=== PATIENT | female | born 1995 | race Two or more races ===

== ENCOUNTER → 2021-07-12 12:53 | Outpatient (BNVA) | payer OTHER, SELFPAY | PROVIDERS: PCP Internal Medicine; Visit Provider Nurse Practitioner Family | DX: Z13.89 Encounter for screening for other disorder (principal) ==

== ENCOUNTER → 2021-08-18 12:49 | Outpatient (REF) | payer OTHER, SELFPAY | LOC: HO.SL 12:49 | PROVIDERS: PCP Internal Medicine; Visit Provider Nurse Practitioner Family | DX: Z13.89 Encounter for screening for other disorder (principal) ==

== ENCOUNTER → 2021-12-16 16:00 | Outpatient (REF) | payer OTHER, SELFPAY | LOC: HO.SL 16:00 | PROVIDERS: PCP Internal Medicine; Visit Provider Nurse Practitioner Family | DX: G47.19 Other hypersomnia (principal); G47.9 Sleep disorder, unspecified; R06.83 Snoring | CPT/HCPCS: 95806 ==

== ENCOUNTER → 2022-03-29 14:29 | Outpatient (BNVA) | payer OTHER, SELFPAY | PROVIDERS: PCP Internal Medicine; Visit Provider Nurse Practitioner Family | DX: F09 Unspecified mental disorder due to known physiological condition (principal) ==

== ENCOUNTER → 2022-09-23 15:29 | Outpatient (BNVA) | payer OTHER, SELFPAY | PROVIDERS: PCP Internal Medicine; Visit Provider Nurse Practitioner Family ==

== ENCOUNTER 2023-01-25 08:10 | Outpatient (AMB) | payer OTHER, SELFPAY ==
--- NOTE | 2023-01-25 08:11 | A.OFFVIS_ITS ---
Intake Vital Signs 01/25/23 08:12 Height 5 ft 3 in Weight 185 lb BMI 32.8 BP 110/76 Blood Pressure Location Rt brachial Position Sitting Pulse 76 Pulse Source Pulse Oximeter Pulse Oximetry (%) 98 Oxygen Delivery Method Room Air Intake Visit Reasons: 4 mnts f/u appt-Confirmed Intake Note: Patient presents for 4 month follow up. patient states Im not having the severe migraines, Im just getting tension headaches now, but im not missing work. Allergies hong Allergy (Intermediate, Verified 01/25/23 08:14) Hives nectarine Allergy (Intermediate, Verified 01/25/23 08:14) Hives tree and shrub pollen Allergy (Intermediate, Verified 01/25/23 08:14) Hives 2-octyl cyanoacrylate [From SurgiSeal Teardrop Applicator] Allergy (Verified 01/25/23 08:14) Hives cat dander Allergy (Verified 01/25/23 08:14) Hives cats Allergy (Severe, Uncoded 01/25/23 08:14) Hives dog Allergy (Intermediate, Uncoded 01/25/23 08:14) Hives peach Allergy (Intermediate, Uncoded 01/25/23 08:14) Hives roaches Allergy (Uncoded 01/25/23 08:14) Hives Medication List - Last Reconciled 01/25/23 by LEAH Zaidi albuterol sulfate mg inhalation albuterol sulfate 90 mcg/actuation 1 inh inhalation QID cetirizine (All Day Allergy (cetirizine)) 10 mg PO DAILY PRN epinephrine 0.3 mg IM Q4H PRN fluticasone propion-salmeterol 500-50 mcg/dose (Wixela Inhub) 1 ea inhalation BID magnesium oxide 400 mg PO BEDTIME 30 days norethindrone (contraceptive) 0.35 mg PO DAILY omeprazole 20 mg PO DAILY riboflavin (vitamin B2) 400 mg PO DAILY 30 days rizatriptan 5 - 10 mg (0.5 - 1 x 10 mg) PO Q2H PRN 21 days topiramate 25 - 50 mg (1 - 2 x 25 mg) PO BEDTIME 30 days HPI HPI Comments History of Present Illness Details 28-yr-old female presents for f/u visit. Pt denies any significant interval medical changes. She is having less headcahe overall. No severe migraines. Not needing to miss work anymore. She may have a milder bilateral temporal or occipital tension type headache 2-3 x's per week. She is taking Topiramate 25mg qd- tolertaing well. She has not tried Rizatriptan yet. Pt is feeling better that she will be moving into a better apartment in near future. [facility] Surgical History No pertinent past surgical history Family History (Updated 01/25/23 @ 08:14 by WILLIAM Evans) Maternal Grandmother Liver cancer Other Colon cancer Diabetes Schizoaffective disorder Skin cancer Social History Alcohol intake: current Alcohol intake frequency: holidays/special occasions only Patient Tobacco Use Status: Former Tobacco user Substance Use Type: Marijuana Review of Systems Const All systems reviewed & are unremarkable except as noted in HPI and below Physical Exam Vital Signs: Last Vital Signs Pulse 76 01/25/23 08:12 BP 110/76 01/25/23 08:12 Pulse Ox 98 01/25/23 08:12 Oxygen Delivery Method Room Air 01/25/23 08:12 BMI result Body Mass Index 32.8 Const General: cooperative and no acute distress Orientation/consciousness: patient oriented x3 HEENT Head: Yes normocephalic Resp Effort & Inspection: normal respiratory effort and able to speak in complete sentences Neuro General: patient oriented x3, gait normal and CN's II-XI intact bilaterally Cognition (Neuro): normal cognition Motor exam (neuro): 5/5 motor strength present throughout Psych Appearance: grossly normal Mental Status: mental status grossly normal Speech and movement: Normal speech and movement present Affect: normal affect Attitude: cooperative Thought process: Normal thought process present Thought content: Normal thought content present Insight: Good insight present (Psych) Judgement: Good judgement present (Psych) Assessment & Plan Assessment & Plan (1) Migraine without aura: Code(s): G43.009 - Migraine without aura, not intractable, without status migrainosus (2) Sleep disorder, unspecified: Comment: snoring, fragmented sleep, excessive daytime sleepiness, ESS 12 Code(s): G47.9 - Sleep disorder, unspecified (3) Cognitive dysfunction: Comment: poor long-term and short-term memory, poor focus. ? undiagnosed ADD. ? multifactorial- sleep disorder, mood d/o. Code(s): F09 - Unspecified mental disorder due to known physiological condition Plan For acute migraine treatment: Trial Rizatriptan 10mg tab, 1/2 - 1 tab (5-10mg) at onset of TTH or migraine, may repeat in 2 hours. Max of 2 tabs (200mg) per 24 hours. May adjunct with OTC Tylenol 650mg q 4 hours, Ibuprofen (liquigel) 600mg q 6 hours, or Naproxen (liquigel) 440mg q 12 hrs prn. Previous migraine tx trials: sumatriptan- helpful but not tolerated. ? For migraine prevention treatment: Continue magnesium 400 mg q.h.s. Continue riboflavin 400 mg q.a.m. Increase Topiramate from 25mg to 50mg qhs. Contraindications: Beta-blockers d/t asthma dx. Amitriptyline until cleared/seen by psychiatry. ? For sleep: HST- no sleep apnea identified. Continue to try to optimize sleep hygiene- especially on nights she plays soccer. ? For cognitive and mood difficulties: Pt is on wait list for psychiatry and psychologist- pt would likely benefit from DBT. ? f/u in 6 months or sooner prn Medications: Changed From topiramate 25 - 50 mg (1 - 2 x 25 mg) PO BEDTIME 30 days 60 tabs 3RF To topiramate 50 mg (2 x 25 mg) PO BEDTIME 30 days 60 tabs 3RF Coding Level of Care Code Est Pt Level 4 (60681) Diagnoses Migraine without aura G43.009 Sleep disorder, unspecified G47.9 Cognitive dysfunction F09
[2023-01-25 08:12] VITALS: BP 110/76; PULSE 76; O2SAT 98; BMI 32.8
== END 2023-01-25 08:29 | disposition home or self-care (01) ==
PROVIDERS: PCP Internal Medicine; Visit Provider Nurse Practitioner Family
DX: G44.209 Tension-type headache, unspecified, not intractable (principal); R41.89 Other symptoms and signs involving cognitive functions and awareness; G47.9 Sleep disorder, unspecified
CPT/HCPCS: 99214

== ENCOUNTER → 2023-01-25 08:10 | Outpatient (BNVA) | payer OTHER, SELFPAY | PROVIDERS: PCP Internal Medicine; Visit Provider Nurse Practitioner Family ==

== ENCOUNTER 2023-07-25 08:07 | Outpatient (AMB) | payer OTHER, SELFPAY ==
--- NOTE | 2023-07-25 08:09 | A.OFFVIS_ITS ---
Vital Signs 07/25/23 08:15 Height 5 ft 3 in Weight 191 lb 2 oz BMI 33.9 BP 115/70 Blood Pressure Location Rt brachial Position Sitting Pulse 68 Pulse Source Pulse Oximeter Pulse Oximetry (%) 98 Oxygen Delivery Method Room Air Intake Visit Reasons: 6 mo f/u-Sleep disorder-CONF Intake Note: Patient presents for 6 months f/U. Allergies hong Allergy (Intermediate, Verified 07/25/23 08:14) Hives nectarine Allergy (Intermediate, Verified 07/25/23 08:14) Hives tree and shrub pollen Allergy (Intermediate, Verified 07/25/23 08:14) Hives 2-octyl cyanoacrylate [From SurgiSeal Teardrop Applicator] Allergy (Verified 07/25/23 08:14) Hives cat dander Allergy (Verified 07/25/23 08:14) Hives cats Allergy (Severe, Uncoded 01/25/23 08:14) Hives dog Allergy (Intermediate, Uncoded 01/25/23 08:14) Hives peach Allergy (Intermediate, Uncoded 01/25/23 08:14) Hives roaches Allergy (Uncoded 01/25/23 08:14) Hives HPI Comments Details: 28-yr-old female presents for f/u visit. Pt reports she is managing her mood better. Headaches are stable. She is having difficulty sleeping- sleeps 11pm until 2:30am and then cannot sleep. Notes that she spends a lot of time in bed. Does not use her phone or watch TV in bed. [facility] Surgical History No pertinent past surgical history Family History Maternal Grandmother Liver cancer Other Colon cancer Diabetes Schizoaffective disorder Skin cancer Social History Alcohol intake: current Alcohol intake frequency: holidays/special occasions only Patient Tobacco Use Status: Former Tobacco user Substance Use Type: Marijuana Physical Exam Vital Signs: Last Vital Signs Pulse 68 07/25/23 08:15 BP 115/70 07/25/23 08:15 Pulse Ox 98 07/25/23 08:15 Oxygen Delivery Method Room Air 07/25/23 08:15 BMI result Body Mass Index 33.9 Const General: cooperative and no acute distress Orientation/consciousness: patient oriented x3 Resp Effort & Inspection: normal respiratory effort and able to speak in complete sentences Neuro General: patient oriented x3 Cranial nerves: Yes CN's II-XII intact bilaterally Cognition (Neuro): normal cognition Psych Appearance: grossly normal Mental Status: mental status grossly normal Speech and movement: Normal speech and movement present Affect: normal affect Attitude: cooperative Assessment & Plan Assessment & Plan (1) Migraine without aura: Code(s): G43.009 - Migraine without aura, not intractable, without status migrainosus Category: Medical (2) Sleep disorder, unspecified: Comment: snoring, fragmented sleep, excessive daytime sleepiness, ESS 12 Code(s): G47.9 - Sleep disorder, unspecified Category: Medical (3) Cognitive dysfunction: Comment: poor long-term and short-term memory, poor focus. ? undiagnosed ADD. ? multifactorial- sleep disorder, mood d/o. Code(s): F09 - Unspecified mental disorder due to known physiological condition Category: Medical (4) Mood disorder: Code(s): F39 - Unspecified mood [affective] disorder Category: Medical Plan For acute migraine treatment: Rizatriptan 10mg tab, 1/2 - 1 tab (5-10mg) at onset of TTH or migraine, may repeat in 2 hours. Max of 2 tabs (200mg) per 24 hours. May adjunct with OTC Tylenol 650mg q 4 hours, Ibuprofen (liquigel) 600mg q 6 hours, or Naproxen (liquigel) 440mg q 12 hrs prn. Previous migraine tx trials: sumatriptan- helpful but not tolerated. ? For migraine prevention treatment: Continue magnesium 400 mg q.h.s. Continue riboflavin 400 mg q.a.m. Continue Topiramate 50mg qhs. Contraindications: Beta-blockers d/t asthma dx. Amitriptyline until cleared/seen by psychiatry. ? For sleep: HST- no sleep apnea identified. Discussed strategies to optimize sleep hygiene.r. ? For cognitive and mood difficulties: Monitor. ? f/u in 6 months or sooner prn Coding Level of Care Code Est Pt Level 4 (11194) Diagnoses Migraine without aura G43.009 Sleep disorder, unspecified G47.9 Cognitive dysfunction F09 Mood disorder F39
[2023-07-25 08:15] VITALS: BP 115/70; PULSE 68; O2SAT 98; BMI 33.9
== END 2023-07-25 08:45 | disposition home or self-care (01) ==
PROVIDERS: PCP Internal Medicine; Visit Provider Nurse Practitioner Family
DX: G43.009 Migraine without aura, not intractable, without status migrainosus (principal); G47.9 Sleep disorder, unspecified; R41.89 Other symptoms and signs involving cognitive functions and awareness; F39 Unspecified mood [affective] disorder
CPT/HCPCS: 99214

== ENCOUNTER → 2023-07-25 08:07 | Outpatient (BNVA) | payer OTHER, SELFPAY | PROVIDERS: PCP Internal Medicine; Visit Provider Nurse Practitioner Family ==

== ENCOUNTER 2024-12-19 14:28 | Outpatient (AMB) | payer MEDICAID, SELFPAY ==
--- NOTE | 2024-12-19 14:58 | MHC.OFFVIS ---
Vital Signs 12/19/24 15:10 BP 100/70 Blood Pressure Location Rt brachial Position Sitting Pulse 71 Pulse Source Pulse Oximeter Pulse Oximetry (%) 98 Oxygen Delivery Method Room Air Intake Visit Reasons: 6 month F/U Intake Note: Patient presents for 6 months f/U. Post Anesthesia Nurse Required: No Accompanied by: Self / Same As Patient Allergies hong Allergy (Intermediate, Verified 12/19/24 15:09) Hives nectarine Allergy (Intermediate, Verified 12/19/24 15:09) Hives tree and shrub pollen Allergy (Intermediate, Verified 12/19/24 15:09) Hives 2-octyl cyanoacrylate (From SurgiSeal Teardrop Applicator) Allergy (Verified 12/19/24 15:09) Hives cat dander Allergy (Verified 12/19/24 15:09) Hives cats Allergy (Severe, Uncoded 01/25/23 08:14) Hives dog Allergy (Intermediate, Uncoded 01/25/23 08:14) Hives peach Allergy (Intermediate, Uncoded 01/25/23 08:14) Hives roaches Allergy (Uncoded 01/25/23 08:14) Hives Medication List - Last Reconciled 12/19/24 by LEAH Zaidi albuterol sulfate mg inhalation albuterol sulfate 90 mcg/actuation 1 inh inhalation QID cetirizine (All Day Allergy (cetirizine)) 10 mg PO DAILY PRN epinephrine 0.3 mg IM Q4H PRN fluticasone propion-salmeterol 500-50 mcg/dose (Wixela Inhub) 1 ea inhalation BID magnesium oxide 400 mg PO BEDTIME 90 days norethindrone (contraceptive) 0.35 mg PO DAILY omeprazole 20 mg PO DAILY riboflavin (vitamin B2) 400 mg PO DAILY 90 days rizatriptan 5 - 10 mg (0.5 - 1 x 10 mg) PO Q2H PRN 21 days topiramate 25 - 50 mg (1 - 2 x 25 mg) PO BEDTIME 30 days HPI Comments Details: 29-yr-old female presents for f/u visit for migraine. She is 9 months , she had preeclampsia, no longer nursing. However, yesterday, she states she struck the top of her head on an exhaust fan, when she tried to hop up to sit on a counter. She reports she sustained a small scalp laceration, and felt general uneasiness, headache, scalp pain, retroorbital pain, dizziness. Deneis associated nausea, vomiting, LOC. The dizziness has resolved today. Prior to this accident, she was not having many migraines unless very stressed. Reports her mood is not as regular, can be short-tempered (not necessarily expressing it but just feeling it). She has an appointment in April w/ a new psychiatrist, but is looking for a new therapist. Her sleep is fragmented due to having a 9 month old who wakes up frequently. [facility] Surgical History No pertinent past surgical history Family History Maternal Grandmother Liver cancer Other Colon cancer Diabetes Schizoaffective disorder Skin cancer Social History Alcohol intake: current Alcohol intake frequency: holidays/special occasions only Patient Tobacco Use Status: Former Tobacco user Substance Use Type: Marijuana Physical Exam Vital Signs: Last Vital Signs Pulse 71 12/19/24 15:10 BP 100/70 12/19/24 15:10 Pulse Ox 98 12/19/24 15:10 Oxygen Delivery Method Room Air 12/19/24 15:10 Const General: cooperative and no acute distress Orientation/consciousness: patient oriented x3 Resp Effort & Inspection: normal respiratory effort and able to speak in complete sentences Neuro Other: Photophobic, more so on right eye Anterior crown of head-proximally 2.5 cm well-approximated laceration, without erythema, drainage, warmth. End gaze evoked nystagmus testing-well tolerated, did not evoked nystagmus Tandem and finger-nose test intact Significant swaying on Romberg General: patient oriented x3 Cranial nerves: Yes CN's II-XII intact bilaterally Cognition (Neuro): normal cognition Motor exam (neuro): 5/5 motor strength present throughout Psych Appearance: grossly normal Mental Status: mental status grossly normal Speech and movement: Normal speech and movement present Affect: normal affect Attitude: cooperative Assessment & Plan Assessment & Plan (1) Migraine without aura: Code(s): G43.009 - Migraine without aura, not intractable, without status migrainosus Category: Medical Qualifiers: Status migrainosus presence: without status migrainosus Intractability: not intractable Qualified Code(s): G43.009 - Migraine without aura, not intractable, without status migrainosus (2) Sleep disorder, unspecified: Comment: snoring, fragmented sleep, excessive daytime sleepiness, ESS 12 Code(s): G47.9 - Sleep disorder, unspecified Category: Medical (3) Cognitive dysfunction: Comment: poor long-term and short-term memory, poor focus. ? undiagnosed ADD. ? multifactorial- sleep disorder, mood d/o. Code(s): F09 - Unspecified mental disorder due to known physiological condition Category: Medical (4) Mood disorder: Code(s): F39 - Unspecified mood [affective] disorder Category: Medical Plan For 12/18/2024 concussion with mild head laceration: Pace activities, however avoid complete sensory deprivation May use her usual acute and preventative migraine medication regimen To the small well-approximated head laceration, may apply OTC bacitracin or Neosporin Patient to notify us with any worsening of symptoms, acute changes or red flag symptoms For acute migraine treatment: Resume Rizatriptan 10mg tab, 1/2 - 1 tab (5-10mg) at onset of TTH or migraine, may repeat in 2 hours. Max of 2 tabs (200mg) per 24 hours. May adjunct with OTC Tylenol 650mg q 4 hours, Ibuprofen (liquigel) 600mg q 6 hours, or Naproxen (liquigel) 440mg q 12 hrs prn. Previous migraine tx trials: sumatriptan- helpful but not tolerated. ? For migraine prevention treatment: Continue magnesium 400 mg q.h.s. Continue riboflavin 400 mg q.a.m. If headaches become more frequent, may raising Topiramate 25-50mg daily at bedtime Contraindications: Beta-blockers d/t asthma dx. Amitriptyline until cleared/seen by psychiatry. ? For sleep: Previous HST- no sleep apnea identified. ? For cognitive and mood difficulties: List of local psychology offices shared with patient ? f/u in 6 months or sooner prn Medications: Changed From topiramate 50 mg (2 x 25 mg) PO BEDTIME 30 days 60 tabs 3RF To topiramate 25 - 50 mg (1 - 2 x 25 mg) PO BEDTIME 60 tabs 3RF 30 days From magnesium oxide 400 mg PO BEDTIME 30 days 30 tabs 6RF To magnesium oxide 400 mg PO BEDTIME 90 tabs 3RF 90 days From rizatriptan max 2 tabs per day or 4 tabs per week 5 - 10 mg (0.5 - 1 x 10 mg) PO Q2H 21 days PRN 12 tabs 3RF migraine headache To rizatriptan max 3 tabs per day or 6 tabs per week 5 - 10 mg (0.5 - 1 x 10 mg) PO Q2H PRN 12 tabs 6RF migraine headache 21 days From riboflavin (vitamin B2) 400 mg PO DAILY 30 days 30 tabs 6RF To riboflavin (vitamin B2) 400 mg PO DAILY 90 tabs 3RF 90 days Coding Level of Care Code Est Pt Level 4 (87303) Diagnoses Migraine without aura and without status migrainosus, not intractable G43.009 Status migrainosus presence: without status migrainosus Intractability: not intractable Sleep disorder, unspecified G47.9 Cognitive dysfunction F09 Mood disorder F39
[2024-12-19 15:10] VITALS: BP 100/70; PULSE 71; O2SAT 98
--- OUTSIDE RECORDS SUMMARY | 2024-12-19 16:15 | XMS_ITS | Clinical Summary ---
Author Organization [address] Address [address] [place] [phone] Phone Care Team Providers Care Track Patrol Name Role Phone Kayy Finley MD Primary Care Provider [phone] Allergies Active Allergy Reactions Criticality Noted Date Comments Apple 02/18/2019 Pollen food syndrome-oral itching Damon Anaphylaxis High 10/15/2020 Fruit Extracts 02/18/2019 Nectarin-vomiting, abdominal pain, facial itching Other Cough,Wheezing,Runny nose Low 07/27/2018 [place] (Prunus Persica) 02/18/2019 Facial itching, abdominal pain, vomiting Medications cetirizine (ZyrTEC) 10 mg tablet Take 1 tablet (10 mg total) by mouth 1 (one) time each day. 2 Active EPINEPHrine (EpiPen 2-Foreign) 0.3 mg/0.3 mL injection Inject 0.3 mL (0.3 mg total) as directed if needed for anaphylaxis. 2 Active azelastine (ASTELIN) 137 mcg (0.1 %) nasal spray Administer 2 sprays into each nostril 2 (two) times a day. 3 Active norethindrone (DARA,RJ, LENA,MICRON OR) 0.35 mg tabletIndicati ons: control counseling Take 1 tablet (0.35 mg total) by mouth 1 (one) time each day. 28 tablet 11 5 026 Active fluticasone-sa lmeterol (ADVAIR DISKUS) 250-50 mcg/dose diskus inhaler Inhale 1 puff by mouth 2 (two) times a day. Rinse mouth with water after use to reduce aftertaste and incidence of candidiasis. Do not swallow. 1 each 5 5 026 Active albuterol HFA (ProAir HFA) 90 mcg/actuation inhaler Inhale 2 puffs by mouth every 4 (four) hours if needed for wheezing or shortness of breath. 8.5 g 5 5 026 Active albuterol 2.5 mg /3 mL (0.083 %) nebulizer solution Take 3 mL (2.5 mg total) by nebulization every 4 (four) hours if needed for wheezing or shortness of breath. 75 mL 2 5 Active sertraline (ZOLOFT) 25 mg tablet Take 1 tablet (25 mg total) by mouth 1 (one) time each day. 90 each 5 Active albuterol 2.5 mg /3 mL (0.083 %) nebulizer solution Inhale 3 mL (2.5 mg total) by mouth every 4 (four) hours if needed for wheezing or shortness of breath. 3 025 Discontin ued(Reord er) fluticasone-sa lmeterol (ADVAIR DISKUS) 250-50 mcg/dose diskus inhaler Inhale 1 puff by mouth 2 (two) times a day. Rinse mouth with water after use to reduce aftertaste and incidence of candidiasis. Do not swallow. 5 025 Discontin ued(Reord er) Active Problems Problem Noted Date Diagnosed Date Anxiety 12/12/2024 Assessment & Plan (12/12/2024 10:03 AM EDT): I have refilled her sertraline 25 mg daily. She will be meeting her new psychiatrist in April 2025. She is stable on this regimen. Headache 04/15/2024 Mild pre-eclampsia in third trimester 03/28/2024 Overview (03/28/2024): Diagnosed at 38w3d - IOL 03/28/24 High cholesterol 01/19/2024 Asthma 01/07/2024 Overview (01/07/2024): Wixela,Albuterol prn Dr. Raza Pulmonology Assessment & Plan (12/12/2024 10:03 AM EDT): Continue current regimen of fluticasone-salmeterol, albuterol. Assessment & Plan (06/11/2024 9:46 AM EDT): Stable with Wixela, albuterol. Heartburn 01/07/2024 IBS (irritable bowel syndrome) 01/07/2024 Abn chromsoml and genetic find on antenat screen of mother 09/26/2023 Overview (01/07/2024): SMA carrier. Partner needs to be offered testing. 09/27/23 partner testing order form/kit left in pt pickup.- pending ADD (attention deficit disorder) 09/12/2023 Marijuana use 09/12/2023 Overview (03/05/2024): 09/12/2023- UDS pos MJ Quit when +preg test Prediabetes 09/23/2022 Assessment & Plan (12/12/2024 10:03 AM EDT): We will monitor A1c. She will follow diabetic diet. Assessment & Plan (06/11/2024 9:46 AM EDT): Will monitor A1c levels. Orders: Hemoglobin A1c; Future Lipid panel with reflex to direct LDL; Future Thyroid stimulating hormone with reflex to free t4 and free t3; Future Migraine with aura 12/16/2021 Overview (01/07/2024): [facility]. 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 She is currently seeing Salima Hicks at [facility] biweekly Allergic conjunctivitis of both eyes 02/18/2019 Eczema 02/18/2019 Perennial allergic rhinitis 02/18/2019 Assessment & Plan (06/11/2024 9:46 AM EDT): Referral to attacher placed. Continue cetrizine and azelastine. Orders: Ambulatory referral to Allergy; Future Resolved Problems Problem Noted Date Diagnosed Date Resolved Date care, subsequent 02/09/2024 05/06/2024 Overview (03/18/2024): 1. [facility] site: [address] 2. Delivery site: [facility] 3. Mobile Mommas: 4. Dating criteria: LMP only 5. Blood type: O+ 6. Genetic screening: Date: Result: Panorama: High Risk due to low fraction (<1) - pt to be re-drawn 09/25 Horizon: pending Nuchal: normal AFP: Survey: 11/23/2023 at 8am 6. GBS: Date: 03/15 neg 7. FOB name: Yoav Castanon [phone] 8. Plans A. Epidural or other pain management - B. Labor support identified - C. Tdap - Date:, Flu - Date: D. Breast or Bottle feed: Breast, E. Baby's name -girl, Gabriela F. Circumcision - 9. Hospital Course: Obesity affecting in second trimester 01/07/2024 05/06/2024 Abnormal test 10/11/202305/06 Overview (03/15/2024): 09/12/2023 Panorama: High risk due to DNA fraction (<1%) - pt 10w1d. Pt sent for re-draw. 09/26/2023 Panorama: High risk due to DNA fraction (1.0%) - pt 12w1d. EDC confirmed by ultrasound. Normal NT. 10/11/23 Genetic Consult Referral faxed. 10/12/23 Per Katja Noble genetic counselor - pt would like to do re-draw on Panorama (ordered). She also is arranging early detailed u/s for 16wks (with possible amnio if needed) 10/23/23 Panorama: High risk due to DNA fraction (1.1%) - pt 14w4d. Pt aware (states not planning on doing amnio - has early u/s scheduled 10/31). Copy was faxed to Katja Noble genetic counselor. 10/24/23 Katja Noble spoke with pt. Pt again declined amnio. Will wait for u/s results next week and states will need to follow preg more closely. 11/29/2023- echo- normal 02/13/2024- 32 week growth scan- 5#5oz. 99%tile. AISHWARYA 13.89. (normal). Has F/U growth scan 4 weeks. Note: 1 hour GTT elevated. 3 Hour normal. 03/14/24 - EFW -8#10 OZ, 99%TILE. Aishwarya- NORMAL. 10 Abnormal test 10/11/202302/14 Overview (02/15/2024): 09/12/2023 Panorama: High risk due to DNA fraction (<1%) - pt 10w1d. Pt sent for re-draw. 09/26/2023 Panorama: High risk due to DNA fraction (1.0%) - pt 12w1d. EDC confirmed by ultrasound. Normal NT. 10/11/23 Genetic Consult Referral faxed. 10/12/23 Per Katja Noble genetic counselor - pt would like to do re-draw on Panorama (ordered). She also is arranging early detailed u/s for 16wks (with possible amnio if needed) 10/23/23 Panorama: High risk due to DNA fraction (1.1%) - pt 14w4d. Pt aware (states not planning on doing amnio - has early u/s scheduled 10/31). Copy was faxed to Katja Noble genetic counselor. 10/24/23 Katja Noble spoke with pt. Pt again declined amnio. Will wait for u/s results next week and states will need to follow preg more closely. Echo scheduled 11/29/23- Normal Abn chromsoml and genetic fi nd on antenat screen of mother 09/26/2023 02/15/2024 Overview (02/15/2024): SMA carrier. Partner needs to be offered testing. 09/27/23 partner testing order form/kit left in pt pickup.- pending 10/30/23 FOB Yoav Castanon negative 12 of 12 Encounters Date Type Department Care Team Description 12/12/2024 9:30 AM EDT Office [facility] [address] [facility] [place] [phone] Bryant Pablo MD Uncomplicated asthma, unspecified asthma severity, unspecified whether persistent (Primary Dx); Prediabetes; Hyperlipidemia, unspecified hyperlipidemia type; Anemia, unspecified type; Anxiety from Last 3 Months Immunizations Name Administration Dates Next Due DTaP (Infanrix) 6wks to less than 7yo ,04/14/1997,1996,05/07,1996 ELsT-TFG-LXR (Pentacel) 2mo to less than 5yo 04/14/1997,1996,1996,03/19 HPV, Quadrivalent 10/21/2008,11/13/2007,09/10/19 08 Hepatitis B Pediatric (Enger ix B; Recombivax HB) to less than 20 yo 1996,1996,1996 IPV Inactivated polio (Ipol) 6wks and older 03/19/1998,04/14/1997,1996,05/07 Influenza Quadravalent, MDCK , 0.5ml, preservative free (Flucelvax) 6mo and older 12/10/2019 Influenza trivalent, with pr eservative (Fluzone; Afluria) 6mo and older 01/22/2019 Influenza, Unspecified 12/01/2022,12/15/2021 MMR, measles mumps and rubel la Live (Priorix; M-M-R II) 12mo and older 12/05/2000,1997 Meningococcal B, Recombinant (Bexsero) 16yo to less than 24yo 03/16/2017 Meningococcal MCV4P 12/10/2014,10/21/2008 Moderna Covid-19 Bivalent, O riginal + Ba.1 (Non-US Tradename Spikevax Bivalent) 03/19/2022 ironSource SARS-CoV-2 COVID-19, mRNA, LNP-S, preservative free 01/08/2021,06/12/2020,05/08/2020 Pneumococcal polysaccharide 23 valent (Pneumovax 23) 2yo and older 12/10/2019 Td Tetanus diptheria (Tdvax) 7yo and older 11/27/2012 Tdap Tetanus diptheria acell ular pertussis (Boostrix; Adacel) 7yo and older 01/03/2023,09/10/2007 Varicella live (Varivax) 12m o and older 09/10/2007,12/16/1998 Surgical History Surgery Date Site/Laterality Comments WISDOM TOOTH EXTRACTION PROCEDURE: HISTORICAL WISDOM TEETH EXTRACTION UPPER GASTROINTESTINAL ENDOSCOPY 10/28/2019 PROCEDURE: [place] UPPER GI ENDOSCOPY PERFORMED; COMMENT: normal. Medical History Medical History Date Comments Asthma DX:Asthma Heartburn DX:Heartburn Acid reflux DX:Acid reflux Passage of loose stools DX:Passa ge of loose stools Abdominal cramping DX:Abdominal cramping IBS (irritable bowel syndrome) D X:IBS (irritable bowel syndrome) Epigastric discomfort DX:Epigast sherly discomfort Menses painful DX:Menses painfu l Hx of migraines DX:Hx of migrain es; COMMENT: Kamilah Sanders [facility] Attention deficit disorder DX:At tention deficit disorder Anxiety 12/12/2024 Family History Medical History Relation Name Comments Bipolar disorder Father Type 2 Colon polyps Father Other: penicillin allergy Father No Known Problems Maternal Grandfather Diabetes Maternal Grandmother Type 2 IDDM Liver disease Maternal Grandmother No Known Problems Mother Melanoma Mother's side No Known Problems Paternal Grandfather Breast cancer Paternal Grandmother Colon cancer Paternal Grandmother dx in 4 0s Other: seasonal allergies Sister 1 Bipolar disorder Sister 2 Type 1/2 Colon polyps Sister 2 No Known Problems Sister 3 Ovarian cancer Neg Hx Pancreatic cancer Neg Hx Prostate cancer Neg Hx Uterine cancer Neg Hx Relation Name Status Comments Father Alive Maternal Grandfather Maternal Grandmother Mother Alive Mother's side Alive Paternal Grandfather Paternal Grandmother Alive Sister 1 Alive Sister 2 Alive Sister 3 Alive Social History Tobacco Use Types Packs/Day Years Used Date Smoking Tobacco: Former Smokeless Tobacco: Never Tobacco Cessation:Counseling Given: Not Answered Alcohol Use Standard Drinks/Week Comments Not Currently 2 (1 standard drink = 0.6 oz pur e alcohol) Housing Instability Answer Date Recorde d Are you worried that in the next 2 months you may not have stable housing? No 04/15/2024 Food Access & Nutrition Answer Date Rec orded Do you have access to a vari ety of food including fruits and vegetables? Yes 04/15/2024 Access to Healthcare Answer Date Record ed Within the last 3 months, ho jessica many times did you visit the emergency department for your medical care? 0 03/28/2024 Health Literacy Answer Date Recorded How often do you need to hav e someone help you when you read instructions, pamphlets, or other written material from your doctor or pharmacy? Never 04/15/2024 Caregiver: How often do you need to have someone help you when you read instructions, pamphlets, or other written material from your doctor or pharmacy? Not on file 04/15/2024 Financial Risk Answer Date Recorded How hard is it for you to pa y for the very basics like food, housing, medical care, and air conditioning / heating? Not very hard 04/15/2024 Transportation Answer Date Recorded Has the lack of transportati on kept you from meetings, work, or from getting things needed for daily living? No Has the lack of transportati on kept you from medical appointments or from getting medications? No 04/15/2024 Social Isolation Answer Date Recorded How often do you feel lonely or isolated from th ose around you? Never 04/15/2024 Food Risk Answer Date Recorded Within the past 12 months we worried whether our food would run out before we got money to buy more. Never true 04/15/2024 Within the past 12 months th e food we bought just didn't last and we didn't have money to get more. Never true 04/15/2024 Dependent Care Answer Date Recorded Do you need help finding or paying for care for your loved ones. For example, child welfare social worker or elderly care for an older adult? No 04/15/2024 Education Answer Date Recorded Do you think completing more education or training, like finishing a GED, going to college, or learning a trade, would be helpful for you? No 04/15/2024 Employment and Income Answer Date Recor ded During the last four weeks, have you been actively looking for work? No 04/15/2024 Living Situation Answer Date Recorded What is your living situation? 0 04/15/2024 Interpersonal Safety Answer Date Record ed Physical Abuse 04/15/2024 Verbal Abuse 04/15/2024 Comments No Sex and Gender Information Value Date Recorded Sex Assigned at Female 04/15/2024 4:11 PM EST Legal Sex Female 2:46 AM EST Gender Identity Female 04/15/2024 4:11 PM EST Sexual Orientation Bisexual 04/15/2024 4: 11 PM EST Obstetrics History * This document contains information received from the source organization and may not represent a complete record from that organization. Para Term AB IAB SAB Ectopic Multiple Livin g Live Births 2 1 1 0 0 0 1 1 Date Outcome GA Total Labor Labor/2nd/3rd Weight Sex Type Anes PTL Tamar A1 A5 Name Clin 2023 Term 38w 5d 0h 01m 0h 01m 4100 g (144.6 oz) F CS-LT ranv Epidu ral,O ther (see notes ),Spi nal,G enera l N Livin g 7 9 Antonella a Tina-A rcadia Kina Tina Sabine Formis ano, DO Complications:Cephalopelvic Disproportion Delivery Location:[facility] Last Filed Vital Signs Vital Sign Reading Time Taken Comments Blood Pressure 116/80 12/12/2024 9:35 AM EDT A Pulse 81 12/12/2024 9:35 AM EDT Temperature 36.2 C (97.2 F) 04/15/2024 4:12 PM EST Respiratory Rate 18 05/06/2024 11:02 AM EST Oxygen Saturation 99% 04/02/2024 7:30 AM EST Inhaled Oxygen Concentration - - Weight 88 kg (194 lb) 12/12/2024 9:35 AM EDT Height 160 cm (5' 3 ) 12/12/2024 9:35 AM EDT Body Mass Index 34.37 12/12/2024 9:35 AM EDT Plan of Treatment Upcoming Encounters Date Type Department Care Team (Late st Contact Info) Description 02/11/2025 3:00 PM EST Office Visit Internal Medicine - [address] [phone] Tia Arroyo, ONUR [address] [place] [id number] Scheduled Procedures Name Priority Associated Diagnoses Date/Ti me SECTION Failed induction of labor Severe pre-eclampsia Chorioamnionitis Health Maintenance Due Date Last Done Comments Meningococcal B Vaccine (2 of 2 - Bexsero SCDM 2-dose series) 09/14/2017 03/16/2017 Pneumococcal Vaccine: Pediatrics (0 to 5 Years) and At-Risk Patients (6 to 49 Years) (2 of 2 - PCV) 12/09/2020 12/10/2019 Depression Screening 04/03/2024 COVID-19 Vaccine ( season) 2024 03/19/2022, 01/08/2021, 06/12/2020, Additional history exists Influenza Vaccine (#1) 2024 , 12/15/2021, 12/10/2019, Additional history exists Social Influencers of Health Screening 04/15/2025 04/15/2024 Cervical Cancer Screening: Pap Smear 05/02/2025 05/02/2022, 05/02/2022, 04/19/2022, Additional history exists Hypertension/CHF/CAD Annual BMP Blood Test 12/12/2025 12/12/2024, 03/31/2024, 03/31/2024, Additional history exists Cholesterol Screening (Lipid Panel) 12/12/2029 12/12/2024, 01/15/2024, 09/21/2022 DTaP,Tdap,and Td Vaccines (10 - Td or Tdap) 01/18/2034 01/19/2024, 01/03/2023, 11/27/2012, Additional history exists Hepatitis B Vaccines Completed 1996, 1996, 1996 HIB Vaccines Completed 04/14/1997, 07/02, 1996, Additional history exists IPV Vaccines Completed 03/19/1998, 04/03, 04/14/1997, Additional history exists MMR Vaccines Completed 12/05/2000, 1997 Varicella Vaccines Completed 09/10/2007, 12/16/1998 HPV Vaccines Completed 10/21/2008, 11/01, 09/10/2007 Meningococcal ACWY Vaccine Completed 12/10/2014, HIV Screening Completed 09/12/2023, 09/12/2023 Hepatitis C Screening Completed 09/12/2023 Gonorrhea/Chlamydia Screening Discontinued 09/26/2023 Hepatitis A Vaccines Aged Out No long er eligible based on patient's age to complete this topic RSV Immunization Patients Under 20 months Aged Out No longer eligible based on patient's age to complete this topic Procedures Procedure Name Priority Date/Time Associated Diagnosis Comments CBC WITH AUTO DIFFERENTIAL Routine 12/12/2024 10:13 AM EDT Anemia, unspecified type CBC AND DIFFERENTIAL Routine 12/12/2024 10:13 AM EDT Anemia, unspecified type VITAMIN B12 AND FOLATE Routine 10:13 AM EDT Anemia, unspecified type IRON AND TIBC Routine 12/12/2024 10:13 AM EDT Anemia, unspecified type COMPREHENSIVE METABOLIC PANEL Routine 12/12/2024 10:13 AM EDT History of pre-eclampsia HEMOGLOBIN A1C Routine 12/12/2024 10:13 AM EDT Prediabetes LIPID PANEL WITH REFLEX TO DIRECT LDL Routine 12/12/2024 10:13 AM EDT Prediabetes THYROID STIMULATING HORMONE WITH REFLEX TO FREE T4 AND FREE T3 Routine 12/12/2024 10:13 AM EDT Prediabetes FERRITIN Routine 12/12/2024 10:13 AM EDT Anemia, unspecified type GONORRHEA/CHLAMYDIA SCRREENING Routine 09/26/2023 HEPATITIS C SCREENING Routine 09/12/2023 HIV SCREENING Routine 09/12/2023 HPV Routine 05/02/2022 from Last 3 Months or Most Recently Relevant to Health Maintenance Results * Thyroid stimulating hormone with reflex to free t4 and free t3 (12/12/2024 10:13 AM EDT) TSH 1.03 0.40 - 4.00 mcIU/mL LAB CHEMISTRY METHOD 12/12/2024 4:11 PM EDT [facility] Blood Venous blood specimen / Unknown Venipuncture / Unknown 12/12/2024 10:13 AM EDT 12/12/2024 10:13 AM EDT Bryant Pablo MD LAB BLOOD ORDERABLES Flower l Result [facility] [address] [place] [address], [place] [phone] * Vitamin B12 and folate (12/12/2024 10:13 AM EDT) Vitamin B-12 585 250 - 900 pcg/mL LAB CHEMISTRY METHOD 12/12/2024 3:20 PM EDT [facility] Folate 8.1 2.8 - 17.0 ng/ml LAB CHEMISTRY METHOD 12/12/2024 3:20 PM EDT [facility] Blood Venous blood specimen / Unknown Venipuncture / Unknown 12/12/2024 10:13 AM EDT 12/12/2024 10:13 AM EDT Bryant Pablo MD LAB BLOOD ORDERABLES Flower l Result [facility] [address] [place] [address], [place] [phone] * (ABNORMAL) Lipid panel with reflex to direct LDL (12/12/2024 10:13 AM EDT) Cholesterol 222(H) 0 - 200 mg/dL LAB CHEMISTRY METHOD 12/12/2024 3:20 PM EDT [facility] Triglycerides 208(H) 0 - 150 mg/dL LAB CHEMISTRY METHOD 12/12/2024 3:20 PM EDT [facility] HDL 40 >=40 mg/dL LAB CHEMISTRY METHOD 12/12/2024 3:20 PM EDT [facility] LDL Calculated 140(H) 0 - 100 mg/dL LAB CHEMISTRY METHOD 12/12/2024 3:20 PM EDT [facility] Comment:Estimated LDL Calcul ated using equation: Total cholesterol - HDL cholesterol - (Triglycerides/5) VLDL Cholesterol Joby 41.6 mg/dL LAB CHEMISTRY METHOD 12/12/2024 3:20 PM EDT [facility] Non HDL Chol. (LDL+VLDL) 182(H) <145 mg/dL LAB CHEMISTRY METHOD 12/12/2024 3:20 PM EDT [facility] Chol/HDL Ratio 5.6(H) 0.0 - 4.4 LAB CHEMISTRY METHOD 12/12/2024 3:20 PM EDT [facility] Blood Venous blood specimen / Unknown Venipuncture / Unknown 12/12/2024 10:13 AM EDT 12/12/2024 10:13 AM EDT Bryant Pablo MD LAB BLOOD ORDERABLES Flower l Result [facility] [address] [place] [address], [place] [phone] * CBC auto differential (12/12/2024 10:13 AM EDT) [facility] WBC 8.5 4.8 - 10.8 K/mcL LAB HEMETOLOGY METHOD 12/12/2024 2:14 PM [facility] RBC 4.50 3.80 - 4.80 M/mcL LAB HEMETOLOGY METHOD 12/12/2024 2:14 PM EDT [facility] Hemoglobin 12.5 11.5 - 16.0 g/dL LAB HEMETOLOGY METHOD 12/12/2024 2:14 PM [facility] Hematocrit 38.3 35.0 - 47.0 % LAB HEMETOLOGY METHOD [facility]12[facility]2024 [facility] MCV 84.9 79.0 - 98.0 FL LAB HEMETOLOGY METHOD 12/12/2024 2:14 PM [facility] MCH 27.7 27.0 - 32.0 pcg LAB HEMETOLOGY METHOD 12/12/2024 2:14 PM [facility] MCHC 32.6 32.0 - 37.0 g/dL LAB HEMETOLOGY METHOD 12/12/2024 2:14 PM [facility] RDW 12.6 11.0 - 15.0 % LAB HEMETOLOGY METHOD 12/12/2024 2:14 PM [facility] Platelets 290 130 - 400 K/mcL LAB HEMETOLOGY METHOD 12/12[facility]2024 2:[facility] MPV 9.4 7.0 - 11.0 FL LAB HEMETOLOGY METHOD 12/12/2024 2:14 [facility] NRBC 0.0 <1.0 % LAB HEMETOLOGY METHOD 12/12/2024 2:14 [facility] NRBC Absolute 0.00 <0.10 K/mcL LAB HEMETOLOGY METHOD 12/12/2024 2:14 PM EDT [facility] Neutrophils Relative 64.4 % LAB HEMETOLOGY METHOD 12/12/2024 2:14 PM [facility] Lymphocytes Relative 25.4 % LAB HEMETOLOGY METHOD 12/12/2024 2:14 PM [facility] Monocytes Relative 5.9 % LAB HEMETOLOGY METHOD 12/12/2024 2:14 PM [facility] Eosinophils Relative 3.3 % LAB HEMETOLOGY METHOD 12/12/2024 2:14 PM [facility] Basophils Relative 0.6 % LAB HEMETOLOGY METHOD 12/12/2024 2:14 PM [facility] Immature Granulocytes Relative 0.4 % LAB HEMETOLOGY METHOD 12/12/2024 2:14 PM [facility] Neutrophils Absolute 5.50 1.50 - 7.00 K/mcL LAB HEMETOLOGY METHOD 12/12/2024 2:14 PM [facility] Lymphocytes Absolute 2.16 1.00 - 5.00 K/mcL LAB HEMETOLOGY METHOD 12/12/2024 2:14 PM [facility] Monocytes Absolute 0.50 0.20 - 1.00 K/mcL LAB HEMETOLOGY METHOD 12/12/2024 2:14 PM [facility] Eosinophils Absolute 0.28 0.00 - 0.50 K/mcL LAB HEMETOLOGY METHOD 12/12/2024 2:14 PM [facility] Basophils Absolute 0.05 0.00 - 0.20 K/mcL LAB HEMETOLOGY METHOD 12/12/2024 2:14 PM [facility] Immature Granulocytes Absolute 0.03 0.00 - 0.03 K/mcL LAB HEMETOLOGY METHOD 12/12/2024 2:14 PM [facility] Blood Venous blood specimen / Unknown Venipuncture / Unknown 12/12/2024 10:13 AM EDT 12/12/2024 10:13 AM EDT Bryant Pablo MD LAB BLOOD ORDERABLES Flower l Result Performing Organization Address [facility] Co de Phone Number [facility] [address] [place] [address], [place] [phone] * Iron and TIBC (12/12/2024 10:13 AM EDT) Iron 57 40 - 150 mcg/dL LAB CHEMISTRY METHOD 12/12/2024 3:20 PM EDT [facility] TIBC 355 250 - 450 mcg/dL LAB CHEMISTRY METHOD 12/12/2024 3:20 PM EDT [facility] Iron Saturation 16 15 - 50 % LAB CHEMISTRY METHOD 12/12/2024 3:20 PM EDT [facility] Blood Venous blood specimen / Unknown Venipuncture / Unknown 12/12/2024 10:13 AM EDT 12/12/2024 10:13 AM EDT Bryant Pablo MD LAB BLOOD ORDERABLES Flower l Result Performing Organization Address [facility] Co de Phone Number [facility] [address] [place] [address], [place] [phone] * Hemoglobin A1c (12/12/2024 10:13 AM EDT) Hemoglobin A1C 5.7 <6.5 % LAB CHEMISTRY METHOD 12/12/2024 3:06 PM EDT [facility] Mean Bld Glu Estim. 117 mg/dL LAB CHEMISTRY METHOD 12/12/2024 3:06 PM EDT [facility] Blood Venous blood specimen / Unknown Venipuncture / Unknown 12/12/2024 10:13 AM EDT 12/12/2024 10:13 AM EDT us Bryant Pablo MD LAB BLOOD ORDERABLES Flower l Result [facility] [address] [place] [address], [place] [phone] * Ferritin (12/12/2024 10:13 AM EDT) [facility] Ferritin 50 8 - 252 ng/mL LAB CHEMISTRY METHOD 12/12/2024 3:20 PM EDT [facility] Blood Venous blood specimen / Unknown Venipuncture / Unknown 12/12/2024 10:13 AM EDT 12/12/2024 10:13 AM EDT Bryant Pablo MD LAB BLOOD ORDERABLES Flower l Result Performing Organization Address City/[facility]/ZIP Co de Phone Number [facility] [address] [place] [address], [place] [phone] * Comprehensive metabolic panel (12/12/2024 10:13 AM EDT) [facility] Sodium 137 133 - 145 mmol/L LAB CHEMISTRY METHOD 12/12/2024 3:24 PM EDT [facility] Potassium 4.3 3.5 - 5.5 mmol/L LAB CHEMISTRY METHOD 12/12/2024 3:24 PM EDT [facility] Chloride 107 96 - 110 mmol/L LAB CHEMISTRY METHOD 12/12/2024 3:24 PM EDT [facility] CO2 23 21 - 32 mmol/L LAB CHEMISTRY METHOD 12/12/2024 3:24 PM EDT [facility] Anion Gap 7 3 - 11 LAB CHEMISTRY METHOD 12/12/2024 3:24 PM EDT [facility] Glucose 86 70 - 100 mg/dL LAB CHEMISTRY METHOD 12/12/2024 3:24 PM [facility] BUN 11 5 - 25 mg/dL LAB CHEMISTRY METHOD 12/12/2024 3:24 PM [facility] Creatinine 0.80 0.50 - 1.10 mg/dL LAB CHEMISTRY METHOD 12/12/2024 3:24 PM [facility] eGFR 103 >=60 mL/min/1. 73m2 LAB CHEMISTRY METHOD 12/12/2024 3:24 PM [facility] Comment:Calculation based on the Chronic Kidney Disease Epidemiology Collaboration (CKD-EPI) equation refit without adjustment for race. BUN/Creatinine Ratio 13.8 LAB CHEMISTRY METHOD 12/12/2024 3:24 PM [facility] Calcium 9.6 8.5 - 10.5 mg/dL LAB CHEMISTRY METHOD 12/12/2024 3:24 PM [facility] AST (SGOT) 21 10 - 42 unit/L LAB CHEMISTRY METHOD 12/12/2024 3:24 PM [facility] ALT (SGPT) 27 10 - 60 unit/L LAB CHEMISTRY METHOD 12/12/2024 3:24 PM [facility] Alkaline Phosphatase 65 42 - 121 unit/L LAB CHEMISTRY METHOD 12/12/2024 3:24 PM [facility] Total Protein 7.9 6.0 - 8.0 g/dL LAB CHEMISTRY METHOD 12/12/2024 3:24 PM [facility] Albumin 4.0 3.2 - 5.0 g/dL LAB CHEMISTRY METHOD 12/12/2024 3:24 PM [facility] Total Bilirubin 0.4 0.0 - 1.4 mg/dL LAB CHEMISTRY METHOD 12/12/2024 3:24 PM [facility] Blood Venous blood specimen / Unknown Venipuncture / Unknown 12/12/2024 10:13 AM EDT 12/12/2024 10:13 AM EDT Bryant Pablo MD LAB BLOOD ORDERABLES Flower l Result [facility] ([facility]) [facility] [address] [place] [address], * Gonorrhea/Chlamydia Screening (09/26/2023) Gonorrhea/Chla mydia Screening abstracted Historical Provider HEALTH MAINTENANCE Final Result * HIV Screening (09/12/2023) Pathologist [facility] HIV Screening abstracted Historical Provider HEALTH MAINTENANCE Final Result * Hepatitis C Screening (09/12/2023) Hepatitis C Screening abstracted Historical Provider HEALTH MAINTENANCE Final Result * Cervical Cancer Screening: HPV (05/02/2022) Cervical Cancer Screening: HPV negative, abstracted Historical Provider HEALTH MAINTENANCE Final Result from Last 3 Months or Most Recently Relevant to Health Maintenance Insurance [facility] MEDICAID - [place] Advance Directives * Full Code - Default (Latest Code Status on File) Date Activated Date Inactivated Comments 03/28/2024 5:38 PM 04/02/2024 3:51 PM This is or hiram is used when code status has not been discussed with the patient, or code status is otherwise unknown/unconfirmed To update the patient's code status, place a code status order. Do not modify or discontinue any currently active code status orders. Care Teams Track Patrol Relationship Specialty Start Date End Date Kayy Finley MD [address] [place] [address] PCP - General Internal Medicine 12/12/24
--- OUTSIDE RECORDS SUMMARY | 2024-12-19 16:15 | XMS_ITS | Clinical Summary ---
Author Organization [facility] Address [address] [place] [id number] Care Team Providers Care Chief Operator Reformer Name Role Phone Ghislaine Salvador Primary Care Provider [phone] Allergies No known active allergies Medications Medication Sig Dispensed Refills Start Date End Date Status cetirizine (ZyrTEC) 10 MG tablet Take 10 mg by mouth daily. 0 Active omeprazole (PriLOSEC) 20 MG capsule Take 20 mg by mouth daily. 0 Active albuterol (PROVENTIL HFA;VENTOLIN HFA) 108 (90 Base) MCG/ACT inhaler Inhale 2 puffs into the lungs every 6 (six) hours as needed for wheezing. 0 Active norethindrone-ethinyl estradiol-iron (ESTROSTEP FE) 1-20/1-30/1-35 MG-MCG TABS Take by mouth daily. 0 Active Immunizations Name Administration Dates Next Due Covid-19 (Pfizer) Dilution Required 05/08/2020 Social History Tobacco Use Types Packs/Day Years Used Date Smoking Tobacco: Never Smokeless Tobacco: Never Alcohol Use Standard Drinks/Week Comments Yes 0 (1 standard drink = 0.6 oz pur e alcohol) socially Sex and Gender Information Value Date Recorded Sex Assigned at Female 11/21/2019 5:46 PM EDT Gender Identity Not on file Sexual Orientation Not on file Last Filed Vital Signs Vital Sign Reading Time Taken Comments Blood Pressure 125/84 11/21/2019 6:27 PM EDT Pulse 59 11/21/2019 6:27 PM EDT Temperature 36.7 C (98.1 F) 11/21/2019 6:27 PM EDT Respiratory Rate 18 11/21/2019 6:27 PM EDT Oxygen Saturation 99% 11/21/2019 6:27 PM EDT Inhaled Oxygen Concentration - - Weight 81.6 kg (180 lb) 11/21/2019 3:50 PM EDT Height 160 cm (5' 3 ) 11/21/2019 3:50 PM EDT Body Mass Index 31.89 11/21/2019 3:50 PM EDT Plan of Treatment Health Maintenance Due Date Last Done Comments Hepatitis C Screening 1996 Depression Screening 2008 BMI Counseling 01/01/2014 Preventative Health Evaluation 01/01/2014 Cervical Cancer Screening (Pap Smear) 01/01/2017 COVID-19 Vaccine ( season) 2024 01/08/2021, 06/12/2020, 05/08/2020 Influenza Vaccine (#1) 2024 12/10/2019, 2018 DTap / Tdap / Td (8 - Td or Tdap) 01/03/2033 01/03/2023, 09/10/2007, 03/01/2000, Additional history exists Hepatitis B Vaccines Completed 1996, 1996, 1996 Pneumococcal Vaccine Aged Out 12/10/2019 No long er eligible based on patient's age to complete this topic RSV Ped < 20 months Aged Out No longe r eligible based on patient's age to complete this topic Goals Goal Patient Goal Type Associated Problems Recent Progress Patient-Stated? Author Patient will adhere to treatment plan Chronic Care Management On track( 020 10:18 AM EDT) No Kelsi Olivares Note: 1. Patient to have behavioral health treatment. Care Teams Chief Operator Reformer Relationship Specialty Start Date End Date ModestoGhislaine mayfield Dhaval [address] [place] [address] [place] [address] PCP - General Internal Medicine 11/21/19
--- OUTSIDE RECORDS SUMMARY | 2024-12-19 16:15 | XMS_ITS | Encounter Summary ---
Author Organization [email or web address] [place] [address] Care Team Providers Care Brake Lining Finisher Name Role Phone Kayy Finley MD Primary Care Provider [phone] Encounter Details Date Type Department Care Team (Late st Contact Info) Description 04/02/[address] [facility] - Maternity [address] [place] [phone] Betty Mendez RN Social History Tobacco Use Types Packs/Day Years Used Date Smoking Tobacco: Former Smokeless Tobacco: Never Alcohol Use Standard Drinks/Week Comments Not Currently 2 (1 standard drink = 0.6 oz pur e alcohol) Housing Instability Answer Date Recorde d Are you worried that in the next 2 months you may not have stable housing? No 03/28/2024 Food Access & Nutrition Answer Date Rec orded Do you have access to a vari ety of food including fruits and vegetables? Yes 03/28/2024 Access to Healthcare Answer Date Record ed Within the last 3 months, ho w many times did you visit the emergency department for your medical care? 0 03/28/2024 Health Literacy Answer Date Recorded How often do you need to hav e someone help you when you read instructions, pamphlets, or other written material from your doctor or pharmacy? Never 03/28/2024 Caregiver: How often do you need to have someone help you when you read instructions, pamphlets, or other written material from your doctor or pharmacy? Not on file 03/28/2024 Financial Risk Answer Date Recorded How hard is it for you to pa y for the very basics like food, housing, medical care, and air conditioning / heating? Not very hard 03/28/2024 Transportation Answer Date Recorded Has the lack of transportati on kept you from meetings, work, or from getting things needed for daily living? No Has the lack of transportati on kept you from medical appointments or from getting medications? No 03/28/2024 Social Isolation Answer Date Recorded How often do you feel lonely or isolated from th ose around you? Never 03/28/2024 Food Risk Answer Date Recorded Within the past 12 months we worried whether our food would run out before we got money to buy more. Never true 03/28/2024 Within the past 12 months th e food we bought just didn't last and we didn't have money to get more. Never true 03/28/2024 Dependent Care Answer Date Recorded Do you need help finding or paying for care for your loved ones. For example, children's program coordinator or elderly care for an older adult? No 03/28/2024 Education Answer Date Recorded Do you think completing more education or training, like finishing a GED, going to college, or learning a trade, would be helpful for you? No 03/28/2024 Employment and Income Answer Date Recor ded During the last four weeks, have you been actively looking for work? No 03/28/2024 Living Situation Answer Date Recorded What is your living situation? 1 05/29/2023 Interpersonal Safety Answer Date Record ed Physical Abuse 03/28/2024 Verbal Abuse 03/28/2024 Comments No Sex and Gender Information Value Date Recorded Sex Assigned at Female 04/15/2024 4:11 PM EST Legal Sex Female 2:46 AM EST Gender Identity Female 04/15/2024 4:11 PM EST Sexual Orientation Bisexual 04/15/2024 4: 11 PM EST documented as of this encounter Plan of Treatment Upcoming Encounters Date Type Department Care Team (Late st Contact Info) Description 02/11/2025 3:00 PM EST Office Visit Internal Medicine - [address] [phone] Tia Arroyo NP [address] [place] [address] Scheduled Procedures Name Priority Associated Diagnoses Date/Ti me SECTION Failed induction of labor Severe pre-eclampsia Chorioamnionitis documented as of this encounter Visit Diagnoses Not on filedocumented in this encounter Care Teams Brake Lining Finisher Relationship Specialty Start Date End Date Kayy Finley MD [address] [place] [address] PCP - General Internal Medicine 12/12/24 documented as of this encounter
--- OUTSIDE RECORDS SUMMARY | 2024-12-19 16:15 | XMS_ITS | Encounter Summary ---
Author Organization [place] [address] Care Team Providers Care Deicer Repairer Name Role Phone Kayy Finley MD Primary Care Provider [phone] Encounter Details Date Type Department Care Team (Late st Contact Info) Description 04/02/2024 Consult [facility] Center - Maternity [address] [place] [phone] Betty Mendez RN Social History Tobacco Use [...] for your loved ones. For example, child nutrition director or elderly care for an older adult? [...] PM EST documented as of this encounter Progress Notes * Betty Mendez RN - 04/02/2024 11:59 PM EST FIRST TIME MOTHER. GHTN. MOM WAS ON MAG. SULFATE. P C/S BABY LGA. BLOOD SUGARS COMPLETED. MOM HAD BEEN MOSTLY BF, NOW DOING MOSTLY FORMULA BY CHOICE. DISCUSSED PUMPING DOES NOT WISH TO DO HERE IN HOSPITAL. ENC. TO OFFER BREAST FIRST, THEN FORMULA FOR MILK PRODUCTION. UNABLE TO GIVE PERSONAL PUMP PATIENT HAS TWO INSURANCES LISTED. PT INFORMED NEEDS TO CANCEL ONE INSURANCE BEFORE ABLE TO GET PUMP. documented in this encounter Plan of Treatment Upcoming Encounters Date Type Department Care Team (Late st Contact Info) Description 02/11/2025 3:00 PM EST Office Visit Internal Medicine - [address] [phone] Tia Arroyo NP [address] [place] [address] Scheduled Procedures Name Priority Associated Diagnoses Date/Ti me SECTION Failed induction of labor Severe pre-eclampsia Chorioamnionitis documented as of this encounter Visit Diagnoses Not on filedocumented in this encounter Care Teams Deicer Repairer Relationship Specialty Start Date End Date Kayy Finley MD [address] [place] [address] PCP - General Internal Medicine 12/12/24 documented as of this encounter
== END 2024-12-19 15:58 | disposition home or self-care (01) ==
LOC: HO.HSMS 14:29
PROVIDERS: PCP Internal Medicine; Visit Provider Nurse Practitioner Family
DX: G43.009 Migraine without aura, not intractable, without status migrainosus (principal); G47.9 Sleep disorder, unspecified; R41.89 Other symptoms and signs involving cognitive functions and awareness; F39 Unspecified mood [affective] disorder
CPT/HCPCS: 99214

== ENCOUNTER → 2024-12-19 14:28 | Outpatient (BNVA) | payer MEDICAID, SELFPAY | PROVIDERS: PCP Internal Medicine; Visit Provider Nurse Practitioner Family | DX: G43.009 Migraine without aura, not intractable, without status migrainosus (principal); G47.9 Sleep disorder, unspecified; F09 Unspecified mental disorder due to known physiological condition; F39 Unspecified mood [affective] disorder | CPT/HCPCS: 99212 ==